=== PATIENT | female | born 1955 | race Caucasian/White ===

== ENCOUNTER → 2017-06-16 15:05 | Outpatient (CLI) | payer OTHER ==
[2016-09-27 12:58] VITALS: BMI 25.1
[~2017-06-16 15:05] MED LIST: BACTRIM 400-801 TAB PO; LEXAPRO10 MG PO; LIPITOR40 MG PO; LISINOPRIL-HCTZ1 TA2; LISINOPRIL-HCTZ1 TA2 PO; NAPROSYN500 MG PO; PERCOCET 10/3251 TA1 PO; TRAZODONE HCL50 MG PO; ZYRTEC10 M1 PO; ZYRTEC10 MG PO
== END | disposition home or self-care (01) ==
LOC: D.MRI 15:05
DX: M87.88 Other osteonecrosis, other site (principal)

== ENCOUNTER → 2017-06-18 14:07 | Outpatient (CLI) | payer OTHER ==
[2016-09-27 12:58] VITALS: BMI 25.1
== END | disposition home or self-care (01) ==
LOC: D.LABREF 14:07
DX: M16.11 Unilateral primary osteoarthritis, right hip (principal); Z11.8 Encounter for screening for other infectious and parasitic diseases

== ENCOUNTER 2017-06-25 10:00 | Inpatient (IN) | payer OTHER ==
[~2017-06-25] VITALS: Ht 172.7 cm; Wt 75.0 kg
[~2017-06-25 10:00] MED LIST changes: +LISINOPRIL5 MG PO
[2017-06-25 12:52] LABS: BASOPHILS 0 % (0-2); EOSINOPHILS 0 % (0-7); HEMATOCRIT 39.9 % (36.0-48.0); HEMOGLOBIN 13.5 g/dL (12-16); IMMATURE GRANULOCYTES 0.1 % (0-5); LYMPHOCYTES 28.2 % (15-50); MCH 31.6 pg (26.0-34.0); MCHC 33.8 g/dL (31.0-37.0); MCV 93.4 fL (80.0-100.0); MEAN PLATELET VOLUME 11.3 fL (7.4-10.4); MONOCYTES 6.6 % (2-11); NEUTROPHILS 65.1 % (40-80); PLATELET COUNT 164 10x3/uL (130-400); RBC 4.27 10x6/uL (4.00-5.40); RDW 13.1 % (11.5-14.5); WBC 6.9 10x3/uL (4.8-10.8)
[2017-06-25 13:06] LABS: APTT 26.4 SECONDS (22.8-39.4); CALC OSMOLALITY 283 mosm/kg (275-300); CALCIUM 8.6 mg/dL (8.5-10.1); CARBON DIOXIDE 32.1 mmol/L (21.0-32.0); CHLORIDE - SERUM 105 mmol/L (98-107); CREATININE - SERUM 0.8 mg/dL (0.6-1.3); GLUCOSE 94 mg/dL (74-106); INR 1.01 (0.85-1.17); POTASSIUM - SERUM 4.3 mmol/L (3.5-5.1); PROTIME 13.1 SECONDS (11.6-15.0); SODIUM 142 mmol/L (136-145); UREA NITROGEN 16 mg/dL (7-18); eGFR NON AFRICAN AMERICAN 77 mL/min (90-120)
[2017-06-25 13:19] LABS: APPEARANCE HAZY (CLEAR); BACTERIA FEW /hpf (NONE SEEN); BILIRUBIN NEGATIVE (NEGATIVE); COLOR YELLOW (YELLOW); EPITHELIAL CELLS RARE /hpf (0-5); GLUCOSE NEGATIVE (NEGATIVE); KETONE NEGATIVE (NEGATIVE); LEUKOCYTE ESTERASE TRACE (NEGATIVE); NITRITE NEGATIVE (NEGATIVE); PROTEIN NEGATIVE (NEGATIVE); RED CELLS - URINE 0-5 /hpf (0-5); UROBILINOGEN NORMAL (NORMAL); WHITE CELLS - URINE 0-5 /hpf (0-5)
[2017-07-01] VITALS (11 sets, daily range): BP systolic 100–158; BP diastolic 52–81; Ht 172.7 cm; Wt 75.0 kg
--- NOTE | 2017-07-01 11:25 | NUR ---
PATIENT RECEIVED TO FLOOR FROM PACU VIA BED. NO SIGNS OF DISTRESS NOTED. VITAL SIGNS STABLE. FAMILY PRESENT. DRESSING TO RIGHT HIP CLEAN, DRY AND INTACT. SCDS ON BILATERALLY. ORIENTED TO ROOM. SIDE RAILS UP X2. BED IN LOW POSITION. CALL LIGHT IN REACH.
--- NOTE | 2017-07-01 14:04 | NUR ---
ALERT IN BED WITH FAMILY PRESENT. C/O PAIN 07/27. PERCOCET PER PRN ORDER. DENIES FURTHER NEEDS. SIDE RAILS UP X2. BED IN LOW POSITION. CALL LIGHT IN REACH.
--- NOTE | 2017-07-01 14:32 | OP ---
PATIENT NAME: GALLO CEBALLOS MEDICAL RECORD: [id number] :57 LOCATION:D.[id number] ADMISSION DATE:07/01/17 SURGEON: YOSEF YAN DO DATE OF OPERATION: 07/01/2017 PROCEDURE PERFORMED: Right total hip arthroplasty. PREOPERATIVE DIAGNOSIS: Right femoral head avascular necrosis. POSTOPERATIVE DIAGNOSIS: Right femoral head avascular necrosis. INDICATIONS: Ms. Ceballos is a 62-year-old female who had previously had discovered AVN in her femoral head a couple of years ago. She underwent a core decompression approximately a little less than a year ago and has had excruciating hip pain since, it never improved and she got to the point where she was exhausted dealing with the pain and she requested a total hip arthroplasty to be performed due to the effects of the pain on her activities of daily living and trying conservative management as well as with a core decompression. She was consented in the office. The risks and benefits of the procedure were discussed with her and she consented to undergo right total hip arthroplasty. SURGEON: Yosef Yan DO. ASSISTED BY: CECILIO Mckeon. DESCRIPTION OF PROCEDURE: The patient was taken to the operative suite, laid in supine position and given general anesthetic and moved over to the table and the right leg was positioned. Left leg was placed in a well leg chau and well padded. A timeout was performed and everyone was in agreement with the correct site, side and surgery. She was given Ancef prior to the incision as well as TXA. The patient was then prepped and draped in sterile fashion and the procedure commenced with the incision. There is a careful coagulation made down to the fascia of the tensor fascia adriana and was incised was then elevated off the muscle belly anteriorly and the muscle belly was pushed posterior with an Stiven Romel retractor. The junction just under the rectus femoris muscle was then found and the fascia was incised over that with the plasma knife. The rectus was then released slightly off of the ASIS started off the pelvis to relax it and the fascia over the vessels. The ascending branch of the lateral femoral circumflex were encountered. They were tied off and coagulated using the Aquamantys and then divided using the plasma knife. Dissection was then made down to the hip capsule itself and retractors were placed on either side of it. The capsulotomy was performed and tagged. Some bleeding was found at that time and the Aquamantys was used to coagulate. After that was done, the retractors were then placed intracapsular around the neck and the neck cut was made. The corkscrew was then placed in the femoral head and then did not get a good bite due to the avascular necrosis of the femoral head and a Sandoval retractor was used to get the femoral head out. The acetabulum was then exposed. The anterior labrum was removed as well as the pulvinar and the reaming commenced and a first medialized and then in the correct position. This was done under fluoroscopy sized up to a 52 cup. The cup was then placed into the acetabulum and seen to be in good position and very solid. Attention was then drawn to the femur. The femur was externally rotated and extended and abducted, has to present the femur into the wound, released the pubofemoral ligament was done at that time to get more motion of the femur and a hanna OPERATIVE REPORT [id number] GALLO CEBALLOS cutter was used to cut out the canal of the femur. Canal finder was then placed in the canal and the broaching commenced with a 1 up to an 8. An 8 was placed and we trialed the neck and the head and found to be a standard neck, medium neck standard offset, a 28 head with a dual mobility cup and a 8 stem. These implants were then placed and after confirmation of the trial under fluoroscopy, the correct implants were placed and the stability was checked using external, internal rotation and there is no motion of the big ball seen, so only a small ball was moving while checking the motion. The wound was then irrigated thoroughly and rechecked again for bleeding. There was none. The capsule was closed. Layla was placed into the wound and the tensor fascia adriana, the fascia was closed using [id number]-[id number] sutures, #1 Vicryl. The skin was then closed using 2-0 Vicryl and 4-0 Monocryl and glue was placed over the incision site. Telfa and Tegaderm were placed over that after the glue and Dermabond had dried. The patient was awakened in stable condition taken to recovery. ESTIMATED BLOOD LOSS: 100 mL. TRANSINT:[id number] Voice Confirmation ID: [id number] DOCUMENT ID: [id number] YOSEF YAN DO at 1432 CC: [id number] DICTATION DATE: 07/01/17 1042 GETTER OPERATOR: 07/01/17 1215 ADM IN [place] [id number] [place] [id number]
--- NOTE | 2017-07-01 16:10 | NUR ---
ALERT IN BED. NO SIGNS OF DISTRESS NOTED. SCHEDULED MEDICATION ADMINISTERED. DENIES NEEDS. HAS BEEN UP TO RESTROOM WITH ASSIST X2 TIMES, BUT UNABLE TO VOID AT THIS TIME. SIDE RAILS UP X2. BED IN LOW POSITION. CALL LIGHT IN REACH.
--- NOTE | 2017-07-01 18:00 | NUR ---
IV TO RIGHT AC LEAKING. IV D/C WITH CATH TIP INTACT. NEW 22 GAUGE IV SITED TO RIGHT FOREARM X1 ATTEMPT. FLUSHES EASY WITH BRISK BLOOD RETURN PRESENT. SECURED WITH TAPE AND TEGADERM. IVF INFUSING WITHOUT DIFFICULTY.
[2017-07-02 04:00] VITALS: BP 123/63
[2017-07-02 05:30] LABS: BASOPHILS 0 % (0-2); EOSINOPHILS 0 % (0-7); HEMATOCRIT 32.4 % (36.0-48.0); HEMOGLOBIN 10.7 g/dL (12-16); IMMATURE GRANULOCYTES 0.2 % (0-5); LYMPHOCYTES 14.6 % (15-50); MCH 31.1 pg (26.0-34.0); MCV 94.2 fL (80.0-100.0); MEAN PLATELET VOLUME 11.4 fL (7.4-10.4); MONOCYTES 6.2 % (2-11); PLATELET COUNT 142 10x3/uL (130-400); RBC 3.44 10x6/uL (4.00-5.40); RDW 13.6 % (11.5-14.5); WBC 8.4 10x3/uL (4.8-10.8)
[2017-07-02 05:55] LABS: ANION GAP 9.2 mmol/L (8-16); BILIRUBIN - TOTAL 0.58 mg/dL (0.2-1.3); CALCIUM 7.8 mg/dL (8.5-10.1); CARBON DIOXIDE 28.7 mmol/L (21.0-32.0); POTASSIUM - SERUM 3.9 mmol/L (3.5-5.1)
--- NOTE | 2017-07-02 07:30 | NUR ---
SLEEPING AT THIS TIME WITH RESPIRATIONS EVEN AND NON LABORED. CALL LIGHT IN REACH AND BED ALARM ON. WILL CONTINUE WITH PLAN OF CARE.
--- NOTE | 2017-07-02 09:18 | NUR ---
SCHEDULED MEDICATIONS ADMINISTERED AT THIS TIME WELL PRN PERCOCET AT THIS TIME. AT BEDSIDE. PHYSICAL THERAPY WORKING WITH PT AT THIS TIME. CALL LIGHT IN REACH, WILL CONTINUE WITH PLAN OF CARE.
[2017-07-02 09:52] VITALS: BP 132/60
--- NOTE | 2017-07-02 11:35 | NUR ---
DENIES NEEDS AT THIS TIME. PAIN 02/24. INSTRUCTED PT THAT PAIN MEDICATION WOULD BE AVAILABLE AFTER 1:15PM AND TO CALL IF SHE FELT THAT SHE NEEDED. PT VERBALIZED UNDERSTANDING. CALL LIGHT IN REACH AND BED ALARM ON. WILL CONTINUE WITH PLAN OF CARE.
--- NOTE | 2017-07-02 11:37 | NUR ---
CM met with patient to assess discharge planning needs. Patient lives independently with her , Garret. She plans on discharging home where she has 6 steps to enter into her home, then it is one level. She does not have and medical equipment at home and will need a walker at [facility]. CM has sent the order for a 2 wheel walker to [facility] and it will be delivered to the hospital. Dr Driscoll will let CM know if he want HH or OP PT set up. CM will continue to follow and assist as needed. PCP: Sarah Lalachad) [facility] [facility] [address] [place] () [phone] or [phone]
[2017-07-02 13:07] VITALS: BP 129/60
[2017-07-02] MEDS ORDERED: ELIQUIS2.5 MG PO (14:02)
[2017-07-02] MEDS ORDERED: PERCOCET 10/3251 TA1 PO (14:03)
[2017-07-02] MEDS ORDERED: DURICEF500 MG PO (14:03)
--- NOTE | 2017-07-02 14:11 | NUR ---
lu from [employer] delivering the walker, scd machine, and bedside toilet
--- NOTE | 2017-07-02 15:40 | NUR ---
PRN PERCOCET ADMINISTERED AT THIS TIME. DISCHARGE INSTRUCTIONS REVIEWED WITH PT AND SPOUSE. DENIE QUESTIONS OR CONCERNS. WILL D/C HOME.
== END 2017-07-02 15:55 | disposition home or self-care (01) | DRG 470 ==
LOC: D.SDCHOLD 07-01 05:00 → D.MS 07-01 05:00 → D.SDCHOLD 07-01 07:30 → D.MS 07-01 10:51 → D.SDCHOLD 07-01 15:32 → D.MS 07-01 15:33
PROVIDERS: Emergency Medicine; ADMIT Orthopaedic Surgery
PROC: 0SR90JZ Replacement of Right Hip Joint with Synthetic Substitute, Open Approach (ICD-10-PCS; principal; 2017-07-01 07:30)
DX: M87.9 Osteonecrosis, unspecified (principal); D62 Acute posthemorrhagic anemia; F32.9 Major depressive disorder, single episode, unspecified; I10 Essential (primary) hypertension

== ENCOUNTER → 2018-10-06 06:53 | Outpatient (CLI) | payer OTHER ==
[2017-07-01 11:36] VITALS: BMI 25.1
[~2018-10-06 06:53] MED LIST changes: +DURICEF500 MG PO; +ELIQUIS2.5 MG PO
== END | disposition home or self-care (01) ==
LOC: D.MRI 06:53
DX: M17.0 Bilateral primary osteoarthritis of knee (principal)

== ENCOUNTER → 2018-11-13 09:50 | Outpatient (CLI) | payer OTHER ==
[2017-07-01 11:36] VITALS: BMI 25.1
== END | disposition home or self-care (01) ==
LOC: D.RAD 11-05 13:00
DX: M25.511 Pain in right shoulder (principal)

== ENCOUNTER → 2018-11-24 21:46 | Outpatient (CLI) | payer OTHER ==
[2017-07-01 11:36] VITALS: BMI 25.1
== END | disposition home or self-care (01) ==
LOC: D.MAMMO 15:45
DX: Z12.31 Encounter for screening mammogram for malignant neoplasm of breast (principal)

== ENCOUNTER → 2019-11-01 14:04 | Outpatient (CLI) | payer OTHER ==
[2017-07-01 11:36] VITALS: BMI 25.1
[~2019-11-01 14:04] MED LIST changes: +AMITRIPTYLINE H50 MG PO; +LISINOPRIL20 MG PO; -LISINOPRIL5 MG PO
== END | disposition home or self-care (01) ==
LOC: D.LABREF 14:04
PROVIDERS: ATTEND Orthopaedic Surgery
DX: M17.0 Bilateral primary osteoarthritis of knee (principal)

== ENCOUNTER 2019-11-03 12:00 | Inpatient (IN) | payer OTHER ==
[~2019-11-03] VITALS: Ht 172.7 cm; Wt 77.3 kg
[~2019-11-03 12:00] MED LIST changes: -AMITRIPTYLINE H50 MG PO
[2019-11-12] MEDS ORDERED: AMITRIPTYLINE H50 MG PO (14:22)
[2019-11-15 12:15] LABS: APPEARANCE CLEAR (CLEAR); BACTERIA FEW /hpf (NEGATIVE); BILIRUBIN NEGATIVE (NEGATIVE); COLOR YELLOW (YELLOW); EPITHELIAL CELLS RARE /hpf (0-5); GLUCOSE NEGATIVE (NEGATIVE); KETONE NEGATIVE (NEGATIVE); MUCUS <1+ /lpf (NONE SEEN); NITRITE NEGATIVE (NEGATIVE); PROTEIN NEGATIVE (NEGATIVE); RED CELLS - URINE NONE SEEN /hpf (0-5); UROBILINOGEN NORMAL (NORMAL)
[2019-11-19 07:26] LABS: BASOPHILS 0 % (0-2); EOSINOPHILS 0 % (0-7); HEMATOCRIT 40.1 % (36.0-48.0); HEMOGLOBIN 13.3 g/dL (12-16); IMMATURE GRANULOCYTES 0.2 % (0-5); LYMPHOCYTES 33.3 % (15-50); MCH 30.6 pg (26.0-34.0); MCHC 33.2 g/dL (31.0-37.0); MCV 92.4 fL (80.0-100.0); MEAN PLATELET VOLUME 10.6 fL (7.4-10.4); MONOCYTES 6.6 % (2-11); NEUTROPHILS 59.9 % (40-80); RBC 4.34 10x6/uL (4.00-5.40); WBC 5.5 10x3/uL (4.8-10.8)
[2019-11-19 07:27] LABS: PLATELET COUNT 239 10x3/uL (130-400)
[2019-11-19 07:35] LABS: CALC OSMOLALITY 286 mosm/kg (275-300); CALCIUM 8.9 mg/dL (8.5-10.1); CARBON DIOXIDE 27.2 mmol/L (21.0-32.0); CHLORIDE - SERUM 105 mmol/L (98-107); CREATININE - SERUM 0.8 mg/dL (0.6-1.3); GLUCOSE 96 mg/dL (74-106); POTASSIUM - SERUM 3.7 mmol/L (3.5-5.1); SODIUM 143 mmol/L (136-145); UREA NITROGEN 17 mg/dL (7-18); eGFR NON AFRICAN AMERICAN 77 mL/min (90-120)
[2019-11-19 07:37] LABS: APTT 25.4 SECONDS (22.8-39.4); INR 0.94 (0.85-1.17); PROTIME 12.1 SECONDS (11.6-15.0)
[2019-11-19] MEDS ORDERED: OXYBUTYNIN CHLOR5 MG PO (08:09)
[2019-11-19 08:11] VITALS: BP 181/73; BMI 25.9
--- NOTE | 2019-11-19 14:24 | NUR ---
EPIDURAL @8 ON ADMIT .REDUCED TO 6 @8631
--- NOTE | 2019-11-19 14:40 | NUR ---
EPIDURAL DC"D ROYAL APPLIED PRIOR TO TRANSPORT TO FLOOR @5335
[2019-11-19 14:54] VITALS: BP 112/56
[2019-11-19 15:33] VITALS: BP 112/56; Ht 172.7 cm; Wt 77.3 kg
[2019-11-19 17:50] VITALS: BP 118/68
--- NOTE | 2019-11-19 18:53 | NUR ---
REMAINS WITHIOUT NEEDS.STILL NO PAIN.CPM ORDERED.
[2019-11-19 20:00] VITALS: BP 137/68
[2019-11-20 01:03] LABS: APPEARANCE CLEAR (CLEAR); BACTERIA NONE SEEN /hpf (NEGATIVE); BILIRUBIN NEGATIVE (NEGATIVE); COLOR YELLOW (YELLOW); EPITHELIAL CELLS NSEEN /hpf (0-5); GLUCOSE NEGATIVE (NEGATIVE); KETONE NEGATIVE (NEGATIVE); NITRITE NEGATIVE (NEGATIVE); PROTEIN NEGATIVE (NEGATIVE); RED CELLS - URINE NONE SEEN /hpf (0-5); SPECIFIC GRAVITY 1.015 (1.005-1.020); UROBILINOGEN NORMAL (NORMAL); WHITE CELLS - URINE 0-5 /hpf (NEGATIVE)
[2019-11-20 04:00] VITALS: BP 140/66
--- NOTE | 2019-11-20 04:01 | NUR ---
PT RESTING IN BED. EYES CLOSED. NO SIGNS OF DISTRESS. BREATHING EVEN AND UNLABORED. IV SITE RT HAND DRESSING CLEAN DRY AND INTACT. NO SIGNS OF INFECTION OR INFULTRATION. LUNG SOUNDS CLEAR. BOWEL SOUNDS ACTIVE. LT AND RT KNEE DRESSING CLEAN DRY AND INTACT. WOUND VAC ON. NO LOWER LEGS SWELLING PRESENT. PLEXI PULSES ON. WILL CONTINUE PLAN OF CARE. CALL LIGHT IN REACH. BED RAILS X1.
--- NOTE | 2019-11-20 04:14 | NUR ---
I have reviewed this patient and I concur with the Shift Assessment completed by the Licensed Practical Nurse today this shift.
[2019-11-20 06:09] LABS: BASOPHILS 0 % (0-2); EOSINOPHILS 0 % (0-7); HEMATOCRIT 31.3 % (36.0-48.0); HEMOGLOBIN 10.1 g/dL (12-16); IMMATURE GRANULOCYTES 0.3 % (0-5); LYMPHOCYTES 13.9 % (15-50); MCH 30.4 pg (26.0-34.0); MCHC 32.3 g/dL (31.0-37.0); MCV 94.3 fL (80.0-100.0); MEAN PLATELET VOLUME 10.8 fL (7.4-10.4); MONOCYTES 8.5 % (2-11); NEUTROPHILS 77.3 % (40-80); PLATELET COUNT 215 10x3/uL (130-400); RBC 3.32 10x6/uL (4.00-5.40); RDW 13.3 % (11.5-14.5)
[2019-11-20 06:29] LABS: ANION GAP 12.9 mmol/L (8-16); CALCIUM 7.8 mg/dL (8.5-10.1); CARBON DIOXIDE 25.1 mmol/L (21.0-32.0)
--- NOTE | 2019-11-20 07:10 | NUR ---
PT RESTING IN BED. NO SIGNS OF DISTRESS. IV TO RIGHT WRIST PATENT NO REDNESS OR TENDERNESS. WOUND VAC TO BEATA KNEES DRESSING CLEAN AND INTACT. COMPLAINS OF PAIN. WILL ADDRESS. DENIES ANY FURTHER NEED AT THIS TIME. CALL LIGHT IN REACH. BED LOW POSITION. NO FAMILY AT BEDSIDE AT THSIT TIME.
--- NOTE | 2019-11-20 09:01 | NUR ---
PT LYING IN BED STATES PAIN IS AT A 15 ADMINISTERED PRN PAIN MEDICATION, PT JUST FINISHED BREAKFAST, EMPTIED ROYAL, NO OTHER NEEDS, ASSUME PT CARE
--- NOTE | 2019-11-20 09:30 | NUR ---
PT UP IN CHAIR AFTER WALKING WITH PT, STATES PAIN IS A LOT BETTER NOW AFTER MEDICATION. WILL CONTINUE WITH PLAN OF CARE AND PAIN CONTROL
--- NOTE | 2019-11-20 10:05 | OP ---
PATIENT NAME: GALLO CEBALLOS MEDICAL RECORD: [id number] :57 LOCATION:D.[id number] ADMISSION DATE:11/19/19 SURGEON: YOSEF YAN DO DATE OF OPERATION: 11/19/2019 PROCEDURE PERFORMED: Bilateral total knee arthroplasties. PREOPERATIVE DIAGNOSIS: Bilateral knee osteoarthritis. POSTOPERATIVE DIAGNOSIS: Bilateral knee osteoarthritis. INDICATIONS: Ms. Ceballos is a 64-year-old female who has had several injections in bilateral knees and has had worsening pain. She had x-rays and MRIs, which indicated osteoarthritis of bilateral knees. She wanted to do both on the same time, I told her that we could do that, but she would be at increased risk for complications and continued problems, all the other risks including infection, bleeding, damage to nerves or vessels, need for further surgery, blood clots, even , failure of implants, need for further surgery, fracture, and she signed the consent. SURGEON: Yosef Yan DO DESCRIPTION OF PROCEDURE: The patient got epidural by anesthesia in preoperative area and was taken to the operative suite, given 2 grams of Ancef and 80 mg gentamicin preoperatively. She was sedated and intubated. The bilateral lower extremities were then prepped and draped in sterile fashion. A timeout was performed and everyone was in agreeance of the correct side, site, patient and procedure. We then began with the left one first and covered the right one and sterile dressings. Once we exposed the knee, I marked out the incision and covered in Ioban. I then used 10 blade scalpel and cut down to the capsule and then the capsule with a fresh 10 blade was entered into the joint using medial parapatellar approach. Patella was then milled down. The fat pad was removed. The ACL was removed and the distal femur was entered into the shaft with a drill. The distal femur was then cut through the guide, and after this was done, the proximal tibia was exposed and was cut through the guide. The knee was then brought in extension. The menisci were removed using a lamina microfilm mounter and a Bovie and pituitary. Any bleeding was coagulated with the Aquamantys. The knee was then flexed up and the femur was measured to be 62.5. The 4-in-1 cutting block was then used to cut the femur. Once that was cut the trial was put in place and the tibial tray was floated in marked rotation. Patella was then drilled and the lug holes on the femur were drilled. The trial in the femur was removed and the tibia was exposed sized to a 71. It was drilled and punched and extra holes put in the tibia for cement mantle preparation. Cement was then mixed and the tibial implant impacted in place. Excess cement was removed. The femur was then impacted on and a 10 poly was put in between them and brought to extension. Patella was then put on and the povidone iodine solution with 10% povidone iodine 500 mL of saline was placed in the knee. Excess cement was removed and held while the cement dried. The patella then somehow came loose and I used a 28 and freshened up the cut and deepen the holes and mixing cement and put a 25 and held it in place while it dried and irrigated thoroughly the knee. We then trialed the 10 poly and it fit very well, had good medial and lateral stability in flexion, extension and a 10 E poly was locked into place with the locking mechanism. The knee was then irrigated again. The capsule was closed with #2 Ethibond in gabrmp-yt-lveag fashion, 2-0 Vicryl in the skin and interrupted fashion. ZipLine was placed on OPERATIVE REPORT [id number] LISAGALLO ORTIZ the knee. This was then covered with ABD and cast padding and then covered up. The right knee was then exposed. It had been previously prepped it was reprepped and then the incision was marked out covered with Ioban and the incision began down to the capsule. Medial parapatellar approach was made with a fresh 10 blade scalpel. The fat pad was partially removed. The patella milled down and ACL was removed. The distal femur was then entered with a drill and the distal femur was cut. Proximal tibia was cut and the excess menisci removed when the knee was brought to extension. A 10 extension block fit well. The knee was then flexed up and the femur sized to be 62.5. A 4-in-1 cutting block was then put on and cut and the trial was put into place and the tibia was floated in range. Rotation was then marked. The patella was then drilled and the lug holes on the femur were drilled. The femoral trial was then removed and the tibia was exposed sized to be 71, drilled and then punched, and cement was mixed. Extra holes were placed in the tibia for cement mantle. Cement was then put in the tibia and on the implant, impacted in place. Excess cement was removed. Femur was then impacted on and a 10 poly was put in between them, brought to extension and the patella was put on as well and fit very well at this time. Excess cement was removed and I squeezed held it in place. We then put the povidone iodine in this knee as well, and once it has been 3 minutes, irrigated out thoroughly as we did at the knee. We then sized the poly up to a 14 and 14 fit very well and we locked this into place. Good medial and lateral stability in flexion and extension. We then put the tobramycin and vancomycin powder in and then Layla powder in the knee on the right. This is not done on the left. The capsule was then closed with #2 Ethibond in iqxubq-rf-swmtp fashion. Skin with 2-0 Vicryl in inverted interrupted fashion. The plane on the knee and then the incisional VACs were then placed on each one of the knees and hooked up to suction. She was then awakened and taken to recovery in stable condition. Blood loss approximately 300 mL. COMPLICATIONS: None. TRANSINT:[id number] Voice Confirmation ID: [id number] DOCUMENT ID: [id number] YOSEF YAN DO at 1005 CC: [id number] DICTATION DATE: 11/19/19 1332 EMD TEACHER: 11/19/19 1729 ADM IN [facility] [address] [place] [address]
[2019-11-20 10:12] VITALS: BP 119/62
--- NOTE | 2019-11-20 10:36 | NUR ---
I have reviewed this patient and I concur with the Shift Assessment completed by the Licensed Practical Nurse today this shift.
--- NOTE | 2019-11-20 11:22 | NUR ---
AFTER GVING PT PRN PAIN MEDS PO PT STATED PAIN IS STILL AT A 10, ADMINISTERED PRN IV PAIN MEDS, PT SPOUSE AT BEDSIDE STATED WE NEEDED TO GET PAIN UNDER CONTROL, ADVISED HIM THAT IS ONE OF MY MAIN GOALS, PT WAS UP IN CHAIR AND WALKED BACK TO BED AND MOST LIKELY CAUSE OF CURRENT PAIN. APPLIED ICE TO BOTH KNEES. CONTINUE WITH PLAN OF CARE
[2019-11-20 13:40] VITALS: BP 115/57
[2019-11-20 16:45] VITALS: BP 109/59
--- NOTE | 2019-11-20 16:46 | NUR ---
I have reviewed this patient and I concur with the Shift Assessment completed by the Licensed Practical Nurse today this shift.
--- NOTE | 2019-11-20 17:20 | NUR ---
PT HR STILL IN 100'S AND O2 WAS DOWN TO 86 WENT BACK UP AFTER PLACING 2L OF O2 ON PT AND INSTRUCTING FOR DEEP BREATHES. PT STATES PAIN IS STILL AT AN 8. HAD ADMINISTERED PRN IV PAIN MEDICATION AT 1630 UNABLE TO GIVE ANYTHING ELSE AT THIS TIME, PT WAS SLEEPING PRETTY GOOD BEFORE VS TAKEN. WILL CONTINUE WITH PLAN OF CARE
--- NOTE | 2019-11-20 19:08 | NUR ---
PATIENT ALERT AND ORIENTED WHEN ENTERING THE ROOM. PATIENT SLEEPING WITH NASAL CANNULA ON. PATIENT HAS BILATERAL WOUND VACS TO EACH KNEE. PULSES PALPAPBLE IN PEDAL AREA. PATIENT WIGGLES TOES ON COMMAND. WARM TO TOUCH AND CAPILLARY REFILL LESS THAN 3 SECONDS. PATIENT WEARING PLEXI PULSES ORDERED. PATIENT CURRENTLY NOT ON CPM MACHINE. PROVIDED OXYCODONE 5 MG AND VISTARIL. PATIENT TOOK WITH NO ISSUES. APPLIED CPMS BILATERALLY WITH HELP OF SCHOOL BUSINESS MANAGER. PATIENT TOLERATING WELL AT THIS TIME. CALL LIGHT IN REACH. DENIES FURTHER NEEDS AT THIS TIME. BED LOCKED AND LOWERED WITH SIDE RAILS UP X 2. CPOC.
[2019-11-20 20:00] VITALS: BP 132/60
--- NOTE | 2019-11-20 22:17 | NUR ---
REMOVED CPMS WITH ASSISTANCE OF LEGAL JOB TITLES. PATIENT TOLERATED WELL.
--- NOTE | 2019-11-20 22:45 | NUR ---
APPLIED MEPILEX BORDERS PER ORDER. PLEXI PULSES ON BILATERALLY. ICE TO BILATERAL AFFECTED AREAS.
[2019-11-20 23:30] VITALS: BP 136/54
--- NOTE | 2019-11-21 00:04 | NUR ---
ASSISTED TO BEDSIDE COMMODE. PATIENT MOVEMENT IMPROVING.
--- NOTE | 2019-11-21 02:43 | NUR ---
I have reviewed this patient and I concur with the Shift Assessment completed by the Licensed Practical Nurse today this shift.
[2019-11-21 04:00] VITALS: BP 131/58
[2019-11-21 05:21] LABS: BASOPHILS 0 % (0-2); EOSINOPHILS 0 % (0-7); HEMATOCRIT 29.4 % (36.0-48.0); HEMOGLOBIN 9.5 g/dL (12-16); IMMATURE GRANULOCYTES 0.2 % (0-5); LYMPHOCYTES 11.6 % (15-50); MCH 30.4 pg (26.0-34.0); MCHC 32.3 g/dL (31.0-37.0); MCV 93.9 fL (80.0-100.0); MEAN PLATELET VOLUME 10.6 fL (7.4-10.4); MONOCYTES 10.9 % (2-11); NEUTROPHILS 77.3 % (40-80); RBC 3.13 10x6/uL (4.00-5.40); RDW 13.5 % (11.5-14.5); WBC 9.9 10x3/uL (4.8-10.8)
--- NOTE | 2019-11-21 05:30 | NUR ---
ROYAL CARE PROVIDED. CPM'S ON.
[2019-11-21 05:35] LABS: PLATELET COUNT 163 10x3/uL (130-400)
[2019-11-21 05:58] LABS: ANION GAP 12.6 mmol/L (8-16); CALCIUM 7.7 mg/dL (8.5-10.1); CARBON DIOXIDE 23.2 mmol/L (21.0-32.0); POTASSIUM - SERUM 3.8 mmol/L (3.5-5.1)
[2019-11-21 05:59] LABS: CREATININE - SERUM 1.8 mg/dL (0.6-1.3)
--- NOTE | 2019-11-21 07:37 | NUR ---
ALERT AND ORIENTED. LUNGS CLEAR BILATERALLY. HEART SOUNDS S1 AND S2 HEARD IN ALL [place]. BOWEL SOUNDS ACTIVE X 4. PATIENT CURRENTLY USING CPM MACHINES ON BILATERAL KNEES. REQUESTING PAIN MEDICATION WHEN DUE. AVAILABLE AT 0800. WOUNDS VACS TO BILATERAL KNEEDS C/D/I AND FUNCTIONING PROPERLY. IV TO LEFT WRIST PATENT WITHOUT REDNESS. EDUCATION PROVIDED THAT ROYAL TO BE REMOVED TODAY. VERBALIZED UNDERSTANDING. WILL REMOVE AFTER PATIENT TAKEN OFF CPM MACHINES. DENIES FURTHER NEEDS. BED LOW. CALL VÁSQUEZ AND PERSONAL ITEMS IN REACH. WILL CONTINUE TO MONITOR.
--- NOTE | 2019-11-21 08:09 | NUR ---
REQUESTED AND GIVEN PRN PAIN MEDICATION. ROYAL REMOVED PER ORDER. CPM MACHINES REMOVED PER REQUEST. PATIENT DENIES FURTHER NEEDS. WILL CONTINUE TO MONITOR.
--- NOTE | 2019-11-21 09:00 | NUR ---
BRAYAN MENDES PLACED ON PATIENT PER DR YAN'S REQUEST.
[2019-11-21 09:37] VITALS: BP 111/57
--- NOTE | 2019-11-21 10:00 | NUR ---
PATIENT VOIDING IN TOILET AFTER ROYAL REMOVAL.
--- NOTE | 2019-11-21 10:37 | NUR ---
IV PULLED OUT ON ACCIDENT BY PATIENT TO RIGHT HAND. ONLY IV FLUID OR MED ON JAN HALF NS. DR YAN PAGED TO SEE IF NEED NEW IV OR OK TO LEAVE OUT.
--- NOTE | 2019-11-21 11:02 | NUR ---
SPOKE WITH DR YAN WHO STATES NEED TO RESITE IV D/T PATIENT CREATININE LOW AND NEEDS IV FLUIDS. WILL ATTEMPT TO RESITE.
--- NOTE | 2019-11-21 11:30 | NUR ---
IV RESITED TO LEFT HAND.
--- NOTE | 2019-11-21 12:04 | NUR ---
EKG ORDERED PER CL RAY. RT NOTIFIED.
[2019-11-21 12:05] VITALS: BP 138/68
[2019-11-21 15:58] VITALS: BP 183/77
--- NOTE | 2019-11-21 17:09 | NUR ---
RESTING IN BED. DENIES NEEDS. WILL CONTINUE TO MONITOR.
--- NOTE | 2019-11-21 19:00 | NUR ---
BEDSIDE REPORT RECEIVED. PATIENT CURRENTLY ON CPM'S. REQUESTS PAIN MEDICINE WHEN AVAILABLE. PATIENT DENIES FURTHER NEEDS.
--- NOTE | 2019-11-21 19:37 | NUR ---
PATIENT CALLED THIS NURSE IN ROOM. STATES SHE HAS TROUBLE WITH UTI'S AND HAD ONE PRIOR TO ADMISSION THAT SHE WAS TAKING CIPRO FOR. SHE STATES SHE FEELS SOME BURNING AND ASKED FOR MEDS TO HELP WITH BURNING PAIN. CALL TO DR. YAN INFORMED OF FINDINGS. NEW ORDERS RECEIVED. SEE DOCUMENTATION.
[2019-11-21 20:31] LABS: APPEARANCE CLEAR (CLEAR); BILIRUBIN NEGATIVE (NEGATIVE); COLOR YELLOW (YELLOW); GLUCOSE NEGATIVE (NEGATIVE); KETONE NEGATIVE (NEGATIVE); NITRITE NEGATIVE (NEGATIVE); PROTEIN 1+ mg/dL (NEGATIVE); UROBILINOGEN NORMAL (NORMAL)
[2019-11-21 20:32] LABS: BACTERIA FEW /hpf (NEGATIVE); EPITHELIAL CELLS 0-5 /hpf (0-5)
[2019-11-21 20:51] VITALS: BP 139/64
--- NOTE | 2019-11-21 23:30 | NUR ---
ASSISTED PATIENT TO BEDSIDE COMMODE. PATIENT WOUND VAC ALARMS DURING MOVEMENT. REINFORCED SMALL LEAK AT EDGES WITH TEGADERM. SUCTIONING AT APPROPRIATE LIMITS AND NOT ALARMING. BILATERAL KNEE WOUND VACS SUCTIONING APPROPRIATELY AT THIS TIME.
[2019-11-22 00:21] VITALS: BP 147/80
--- NOTE | 2019-11-22 02:40 | NUR ---
ASSISTED TO BSC. DENIES FURTHER NEEDS AT THIS TIME.
[2019-11-22 05:08] VITALS: BP 141/67
--- NOTE | 2019-11-22 05:43 | NUR ---
I have reviewed this patient and I concur with the Shift Assessment completed by the Licensed Practical Nurse today this shift.
[2019-11-22 05:52] LABS: ANION GAP 11.4 mmol/L (8-16); CALCIUM 8.1 mg/dL (8.5-10.1); CARBON DIOXIDE 24.4 mmol/L (21.0-32.0); POTASSIUM - SERUM 3.8 mmol/L (3.5-5.1)
[2019-11-22 06:07] LABS: BASOPHILS 0.1 % (0-2); EOSINOPHILS 0 % (0-7); HEMATOCRIT 26.9 % (36.0-48.0); HEMOGLOBIN 8.9 g/dL (12-16); IMMATURE GRANULOCYTES 0.2 % (0-5); LYMPHOCYTES 12.8 % (15-50); MCH 30.6 pg (26.0-34.0); MCHC 33.1 g/dL (31.0-37.0); MCV 92.4 fL (80.0-100.0); MEAN PLATELET VOLUME 10.5 fL (7.4-10.4); MONOCYTES 12.9 % (2-11); PLATELET COUNT 175 10x3/uL (130-400); RBC 2.91 10x6/uL (4.00-5.40); RDW 13.6 % (11.5-14.5); WBC 8.5 10x3/uL (4.8-10.8)
--- NOTE | 2019-11-22 06:13 | NUR ---
TUBING CHANGED AND LABELED PER PROTOCAL. SWAB CAPS IN PLACE.
--- NOTE | 2019-11-22 08:00 | NUR ---
PATIENT IN BED WITH IV INTACT. NO COMPLAINTS OR SIGNS OF DISTRESS. IV INTACT. PROVENA WOUND VAC X 2 ON AND WORKING. CPM'S ON. CALL LIGHT WITHIN REACH. WILL CONTINUE TO MONITOR.
[2019-11-22] MEDS ORDERED: ELIQUIS2.5 MG PO (08:15)
[2019-11-22] MEDS ORDERED: CIPRO500 MG PO ×2 (08:16→08:21)
[2019-11-22] MEDS ORDERED: PHENAZOPYRIDIN100 MG PO (08:16)
[2019-11-22] MEDS ORDERED: VISTARIL50 MG PO (08:17)
[2019-11-22] MEDS ORDERED: OXYCODONE HCL10 MG PO (08:17)
[2019-11-22 08:23] VITALS: BP 147/65
--- NOTE | 2019-11-22 09:43 | NUR ---
BOTH KNEES WITH PREVENA ARTHRO DRESSINGS. NO COMPLAINTS OF DISCOMFORT FROM PATIENT. DRESSINGS INTACT. NO DRAINAGE NOTED.
--- NOTE | 2019-11-22 11:33 | MORECARE ---
CASE MANAGEMENT DISCHARGE SUMMARY PATIENT: GALLO GONZALEZ UNIT: [id number] ADM DATE: 11/19/19 AGE: 64 : 59 SEX: F ROOM/BED: D.2218 AUTHOR: ANEUDY LUNA PHYSICIAN: REFERRING PHYSICIAN: PETER YAN DO DATE OF SERVICE: 11/22/19 Discharge Plan Patient Name: GALLO GONZALEZ [facility] [facility] 1955 Planned Disposition: Home with Home Health Anticipated Discharge Date: Discharge Date: Expected LOS: Initial Reviewer: [email or web address] Initial Review Date: 11/19/2019 Generated: 11/22/19 12:33 pm DCPIA - Discharge Planning Initial Assessment Updated by [email or web address]: Radha Thompson on 11/22/19 11:30 am * Is the patient Alert and Oriented? Yes * How many steps to enter\exit or inside your home? * PCP DOUGLAS MENDOZA * Pharmacy [facility] [address] * Preadmission Environment Home with Family * ADLs Independent * Equipment Bedside Commode Shower Chair Walker * Other Equipment PREVENA CPM ICE MACHINE * List name and contact numbers for known caregivers / representatives who currently or will assist patient after discharge: CHRIST () [phone] * Verbal permission to speak to the caregivers and representatives has been obtained from the patient. N/A * Community resources currently utilized None * Additional services required to return to the preadmission environment? Yes * Can the patient safely return to the preadmission environment? Yes * Has this patient been hospitalized within the prior 30 days at any hospital? No Patient Name: GALLO GONZALEZ Page [id number] at 1133 All edits/amendments must be made on the electronic document DICTATION DATE: 11/22/19 1133 HOSPITAL SALES REPRESENTATIVE: VICTORINO 11/22/19 1133 RPT#: [id number] DC DATE: STATUS: ADM IN [facility] [address] [place] [address] END OF REPORT
--- NOTE | 2019-11-22 11:40 | MORECARE ---
CASE MANAGEMENT DISCHARGE SUMMARY PATIENT: GALLO GONZALEZ UNIT: [id number] ADM DATE: 11/19/19 AGE: 64 : 59 SEX: F ROOM/BED: D.7410 AUTHOR: CHERYL,DOC PHYSICIAN: REFERRING PHYSICIAN: PETER YAN DO DATE OF SERVICE: 11/22/19 Discharge Plan Patient Name: GALLO GONZALEZ Facility: [facility]:[place] : 1955 Planned Disposition: Home with Home Health Anticipated Discharge Date: Discharge Date: Expected LOS: Initial Reviewer: [email or web address] Initial Review Date: 11/19/2019 Generated: 11/22/19 12:40 pm Comments DCP- Discharge Planning Updated by [email or web address]: Radha Thompson on 11/22/19 10:[address] Patient Name: GALLO GONZALEZ Admission Status: Elective Accout number: [id number] Admission Date: 11-19-2019 : 1955 Admission Diagnosis: Attending: PETER YAN Current LOS: 3 Anticipated DC Date: Planned Disposition: Home with Home Health Primary Insurance: [facility] Discharge Planning Comments: CM met with patient to complete initial dc planning assessment. CM educated patient on the CM role and verbal consent given by patient to complete assessment. Patient lives at home with spouse where she is independent at home. At discharge patient plans to return home and feels this is a safe discharge. CM discussed availability of home health, rehab services, and medical equipment. 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 She has a CPM machine, walker, BSC, pravena, shower chair & ice machine. She would like to use [facility] with PT. I will call and send referral to [facility]. AMANDA signed and placed in chart. Patient denied known discharge needs at this time. CM will continue to follow and will assist as needed with dc plans/needs. Air Transport Professionals: Radha Thompson DCPIA - Discharge Planning Initial Assessment Updated by [email or web address]: Radha Thompson on 11/22/19 11:30 am * Is the patient Alert and Oriented? Yes * How many steps to enter\exit or inside your home? * PCP DOUGLAS MENDOZA * Pharmacy [facility] [address] * Preadmission Environment Home with Family * ADLs Independent * Equipment Bedside Commode Shower Chair Walker * Other Equipment PREVENA CPM ICE MACHINE * List name and contact numbers for known caregivers / representatives who currently or will assist patient after discharge: CHRIST () [phone] * Verbal permission to speak to the caregivers and representatives has been obtained from the patient. N/A * Community resources currently utilized None * Additional services required to return to the preadmission environment? Yes * Can the patient safely return to the preadmission environment? Yes * Has this patient been hospitalized within the prior 30 days at any hospital? No Coverage Notice Reviewer: [id number] Linda Thompson Notice Issued Date-Time: 11/22/2019 11:15 Notice Type: Patient Choice Letter Notice Delivered To: Patient Relationship to Patient: Hotel Engineer Name: Delivery Method: HAND - Hand Delivered Judi Days: Prior Verbal Notification: Recipient Understood Notice: Yes Recipient Signature: Yes Med Rec Note Co-signed by Attending: Coverage Notice Comment: [facility] Last DP export: 11/22/19 10:33 am Patient Name: GALLO GONZALEZ Page 70415 at 1140 All edits/amendments must be made on the electronic document DICTATION DATE: 11/22/19 1140 METAL MOULDER'S ASSISTANT: VICTORINO 11/22/19 1140 RPT#: [id number] DC DATE: STATUS: ADM IN [facility] [address] [place] [address] END OF REPORT
--- NOTE | 2019-11-22 11:49 | MORECARE ---
CASE MANAGEMENT DISCHARGE SUMMARY PATIENT: GALLO GONZALEZ UNIT: [id number] ADM DATE: 11/19/19 AGE: 64 : 59 SEX: F ROOM/BED: D.8329 AUTHOR: CHERYL,DOC PHYSICIAN: REFERRING PHYSICIAN: PETER YAN DO DATE OF SERVICE: 11/22/19 Discharge Plan Patient Name: GALLO GONZALEZ Facility: [facility]:[place] : 1955 Planned Disposition: Home with Home Health Anticipated Discharge Date: Discharge Date: Expected LOS: Initial Reviewer: [email or web address] Initial Review Date: 11/19/2019 Generated: 11/22/19 12:48 pm Comments DCP- Discharge Planning Updated by [email or web address]: Radha Thompson on 11/22/19 10:[address] Patient Name: GALLO GONZALEZ Admission Status: Elective Accout number: [id number] Admission Date: 11-19-2019 : 1955 Admission Diagnosis: Attending: PETER YAN Current LOS: 3 Anticipated DC Date: Planned Disposition: Home with Home Health Primary Insurance: [facility] Discharge Planning Comments: CM met with patient to complete initial dc planning assessment. CM educated patient on the CM role and verbal consent given by patient to complete assessment. Patient lives at home with spouse where she is independent at home. At discharge patient plans to return home and feels this is a safe discharge. CM discussed availability of home health, rehab services, and medical equipment. 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 She has a CPM machine, walker, BSC, pravena, shower chair & ice machine. She would like to use [facility] with PT. I will call and send referral to [facility]. AMANDA signed and placed in chart. Patient denied known discharge needs at this time. CM will continue to follow and will assist as needed with dc plans/needs. School Bus Aide: Radha Thompson DCPIA - Discharge Planning Initial Assessment Updated by [email or web address]: Radha Thompson on 11/22/19 11:30 am * Is the patient Alert and Oriented? Yes * How many steps to enter\exit or inside your home? * PCP DOUGLAS MENDOZA * Pharmacy [facility] [address] * Preadmission Environment Home with Family * ADLs Independent * Equipment Bedside Commode Shower Chair Walker * Other Equipment PREVENA CPM ICE MACHINE * List name and contact numbers for known caregivers / representatives who currently or will assist patient after discharge: CHRIST () [phone] * Verbal permission to speak to the caregivers and representatives has been obtained from the patient. N/A * Community resources currently utilized None * Additional services required to return to the preadmission environment? Yes * Can the patient safely return to the preadmission environment? Yes * Has this patient been hospitalized within the prior 30 days at any hospital? No External Providers External Provider: [facility] Next Contact Date: Service Request Date: Service Type: Resolution: Reviewer: Comments: Coverage Notice Reviewer: [email or web address] Linda Thompson Notice Issued Date-Time: 11/22/2019 11:15 Notice Type: Patient Choice Letter Notice Delivered To: Patient Relationship to Patient: Data Analysis Intern Name: Delivery Method: HAND - Hand Delivered Juid Days: Prior Verbal Notification: Recipient Understood Notice: Yes Recipient Signature: Yes Med Rec Note Co-signed by Attending: Coverage Notice Comment: [facility] Last DP export: 11/22/19 10:40 am Patient Name: GALLO GONZALEZ Page 44940 at 1149 All edits/amendments must be made on the electronic document DICTATION DATE: 11/22/19 1148 TIGHTENING MACHINE OPERATOR: VICTORINO 11/22/19 1148 RPT#: [id number] DC DATE: STATUS: ADM IN [facility] [address] [place] [address] END OF REPORT
--- NOTE | 2019-11-22 13:23 | NUR ---
PATIENT RECIEVED DC INSTRUCTIONS. VERBALIZED UNDERSTANDING. NO QUESTIONS AT THIS TIME. IV REMOVED WITH CATH TIP INTACT. DRESSINGS AND WOUND VAC CHANGED BY DR. YAN. PRESCRIPTIONS AND EXTRA DRESSING FOR RIGHT KNEE GIVEN TO PATIENT. PATIENT ESCORTED OUT OF HOSPITAL VIA WITH PERSONAL BELONGINGS TO PRIVATE VEHICLE.
--- NOTE | 2019-11-24 18:06 | MORECARE ---
CASE MANAGEMENT DISCHARGE SUMMARY PATIENT: GALLO GONZALEZ UNIT: [id number] ADM DATE: 11/19/19 AGE: 64 : 59 SEX: F ROOM/BED: D.5977 AUTHOR: CHERYL,DOC PHYSICIAN: REFERRING PHYSICIAN: PETER YAN DO DATE OF SERVICE: 11/24/19 Discharge Plan Patient Name: GALLO GONZALEZ Facility: [facility]:[place] : 1955 Planned Disposition: Home with Home Health Anticipated Discharge Date: Discharge Date: 11/22/2019 Expected LOS: Initial Reviewer: [email or web address] Initial Review Date: 11/19/2019 Generated: 11/24/19 7:05 pm Comments DCP- Discharge Planning Updated by [email or web address]: Radha Thompson on 11/22/19 10:[address] Patient Name: GALLO GONZALEZ Admission Status: Elective Accout number: [id number] Admission Date: 11-19-2019 : 1955 Admission Diagnosis: Attending: PETER YAN Current LOS: 3 Anticipated DC Date: Planned Disposition: Home with Home Health Primary Insurance: [facility] Discharge Planning Comments: CM met with patient to complete initial dc planning assessment. CM educated patient on the CM role and verbal consent given by patient to complete assessment. Patient lives at home with spouse where she is independent at home. At discharge patient plans to return home and feels this is a safe discharge. CM discussed availability of home health, rehab services, and medical equipment. 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 She has a CPM machine, walker, BSC, pravena, shower chair & ice machine. She would like to use [facility] with PT. I will call and send referral to [facility]. AMANDA signed and placed in chart. Patient denied known discharge needs at this time. CM will continue to follow and will assist as needed with dc plans/needs. Him Specialists: Radha Thompson DCPIA - Discharge Planning Initial Assessment Updated by [email or web address]: Radha Thompson on 11/22/19 11:30 am * Is the patient Alert and Oriented? Yes * How many steps to enter\exit or inside your home? * PCP DOUGLAS MENDOZA * Pharmacy [facility] [address] * Preadmission Environment Home with Family * ADLs Independent * Equipment Bedside Commode Shower Chair Walker * Other Equipment PREVENA CPM ICE MACHINE * List name and contact numbers for known caregivers / representatives who currently or will assist patient after discharge: CHRIST () [phone] * Verbal permission to speak to the caregivers and representatives has been obtained from the patient. N/A * Community resources currently utilized None * Additional services required to return to the preadmission environment? Yes * Can the patient safely return to the preadmission environment? Yes * Has this patient been hospitalized within the prior 30 days at any hospital? No Coverage Notice Reviewer: [email or web address] Linda Thompson Notice Issued Date-Time: 11/22/2019 11:15 Notice Type: Patient Choice Letter Notice Delivered To: Patient Relationship to Patient: Facilities Technician Name: Delivery Method: HAND - Hand Delivered Judi Days: Prior Verbal Notification: Recipient Understood Notice: Yes Recipient Signature: Yes Med Rec Note Co-signed by Attending: Coverage Notice Comment: [facility] Last DP export: 11/22/19 10:49 am Patient Name: GALLO GONZALEZ Page 67063 at 1806 All edits/amendments must be made on the electronic document DICTATION DATE: 11/24/191804 SCREEDMAN/LABORER: VICTORINO 11/24/191804 RPT#: [id number] DC DATE:11/22/19 STATUS: DIS [facility] [address] [place] [address] END OF REPORT
== END 2019-11-22 13:37 | disposition home health service (06) | DRG 462 ==
LOC: D.SDCHOLD 11-15 10:00 → D.MS 11-19 14:15
PROVIDERS: Emergency Medicine; ADMIT Orthopaedic Surgery; ATTEND Orthopaedic Surgery
PROC: 0SRC0J9 Replacement of Right Knee Joint with Synthetic Substitute, Cemented, Open Approach (ICD-10-PCS; 2019-11-19)
PROC: 0SRD0J9 Replacement of Left Knee Joint with Synthetic Substitute, Cemented, Open Approach (ICD-10-PCS; principal; 2019-11-19 09:30)
DX: M17.0 Bilateral primary osteoarthritis of knee (principal); D62 Acute posthemorrhagic anemia; I10 Essential (primary) hypertension; F32.9 Major depressive disorder, single episode, unspecified

== ENCOUNTER → 2019-12-13 09:36 | Outpatient (CLI) | payer OTHER ==
[2019-11-19 15:33] VITALS: BMI 25.9
[~2019-12-13 09:36] MED LIST changes: +AMITRIPTYLINE H50 MG PO; +CIPRO500 MG PO; +OXYBUTYNIN CHLOR5 MG PO; +OXYCODONE HCL10 MG PO; +PHENAZOPYRIDIN100 MG PO; +VISTARIL50 MG PO
[2019-12-13 09:49] LABS: BASOPHILS 0.2 % (0-2); EOSINOPHILS 0 % (0-7); HEMATOCRIT 35.8 % (36.0-48.0); HEMOGLOBIN 11.5 g/dL (12-16); IMMATURE GRANULOCYTES 0.2 % (0-5); LYMPHOCYTES 28.5 % (15-50); MCH 29.5 pg (26.0-34.0); MCHC 32.1 g/dL (31.0-37.0); MCV 91.8 fL (80.0-100.0); MEAN PLATELET VOLUME 10.6 fL (7.4-10.4); MONOCYTES 7.4 % (2-11); NEUTROPHILS 63.7 % (40-80); RDW 13.8 % (11.5-14.5)
[2019-12-13 10:01] LABS: ANION GAP 13.4 mmol/L (8-16); CALCIUM 9.1 mg/dL (8.5-10.1); CARBON DIOXIDE 29.7 mmol/L (21.0-32.0); CREATININE - SERUM 1.1 mg/dL (0.6-1.3); POTASSIUM - SERUM 4.1 mmol/L (3.5-5.1)
[2019-12-13 10:08] LABS: ALBUMIN 3.8 g/dL (3.4-5.0); BILIRUBIN - TOTAL 0.42 mg/dL (0.2-1.3); PROTEIN - SERUM 7.2 g/dL (6.4-8.2)
[2019-12-13 10:41] LABS: PLATELET COUNT 331 10x3/uL (130-400)
== END | disposition home or self-care (01) ==
LOC: D.LABREF 09:36
PROVIDERS: ATTEND Orthopaedic Surgery
DX: R42 Dizziness and giddiness (principal)

== ENCOUNTER → 2020-06-21 13:41 | Outpatient (CLI) | payer OTHER ==
[2019-11-19 15:33] VITALS: BMI 25.9
== END | disposition home or self-care (01) ==
LOC: D.MRI 13:41
PROVIDERS: ATTEND Orthopaedic Surgery
DX: M75.122 Complete rotator cuff tear or rupture of left shoulder, not specified as traumatic (principal)

== ENCOUNTER 2020-06-27 05:41 | Day surgery (SDC) | payer OTHER ==
[~2020-06-27] VITALS: Ht 172.7 cm; Wt 77.1 kg
[~2020-06-27 05:41] MED LIST changes: +LISINOPRIL10 MG PO; -LISINOPRIL20 MG PO
[2020-06-27 06:18] LABS: HEMATOCRIT 40.7 % (36.0-48.0); HEMOGLOBIN 13.3 g/dL (12-16); MCH 31.3 pg (26.0-34.0); MCHC 32.7 g/dL (31.0-37.0); MCV 95.8 fL (80.0-100.0); MEAN PLATELET VOLUME 10.2 fL (7.4-10.4); RBC 4.25 10x6/uL (4.00-5.40); RDW 13.9 % (11.5-14.5); WBC 6.7 10x3/uL (4.8-10.8)
[2020-06-27 06:47] VITALS: BP 150/84; Ht 172.7 cm; Wt 77.1 kg
--- NOTE | 2020-06-28 03:26 | OP ---
PATIENT NAME: GALLO CEBALLOS MEDICAL RECORD: [id number] :[birth year] [facility] AD[facility] DATE: SURGEON: YOSEF YAN DO DATE OF OPERATION: 06/27/2020 PROCEDURE PERFORMED: Left shoulder arthroscopy with subacromial decompression, distal clavicle excision, labral debridement, biceps tenodesis and rotator cuff repair with Regeneten. PREOPERATIVE DIAGNOSES: Partial rotator cuff tear, AC joint arthritis, subacromial impingement, Dania complex and SLAP tear. POSTOPERATIVE DIAGNOSES: Partial rotator cuff tear, AC joint arthritis, subacromial impingement [place] complex and SLAP tear. INDICATIONS: Ms. Ceballos is a 65-year-old female who has had left shoulder pain for quite some time. We got an MRI showing the above findings. She was tired of dealing with the pain as we tried injections and all manner of nonoperative treatment and wants something done surgically. I informed her of the risks including infection, bleeding, damage to nerves and vessels, need for further surgery, adhesive capsulitis, continued pain, loss of strength in that arm, need for further surgery, failure of implants, even , and she signed the consent. SURGEON: Yosef Yan DO DESCRIPTION OF PROCEDURE: The patient received a block by anesthesia in preoperative area. She was taken to the operative suite, given 900 mg clindamycin, laid in the right lateral decubitus position with the left shoulder up and axillary roll placed. The patient was sedated and LMA was placed. The left shoulder was then prepped and draped in sterile fashion. A timeout was performed and everyone was in agreement with correct site, side, patient, and procedure. Began by inflating the shoulder joint with 60 cc normal saline with an 18-gauge spinal needle through the posterior portal and then removed the head and established the portal with an 11-blade scalpel. Trocar was then entered into the joint. The camera was then entered in. Anterior portal was established with an 18-gaude spinal needle and 11-blade scalpel. I immediately saw the Dania complex and a SLAP tear and the partial rotator cuff tear on the articular side. I then inspected the joint. There was no cartilage loss and the inferior gutter was good. No loose bodies. I then brought the burner in and did a biceps tenotomy and labral debridement and then a debridement of the rotator cuff tendon as well. I then went to the subacromial space, established lateral portal with an 18-gauge spinal needle and 11-blade scalpel. Did subacromial decompression, distal clavicle excision, opening of the AC joint approximately 7 mm and taken distal lateral acromion off the big spur. I then cleaned up the bursa on the rotator cuff and then marked the tear. There was a partial tear also on the bursal side and marked it and then went back in the joint to assure that it was in the correct spot on the articular side and it was. I then extended the lateral incision and made careful dissection down to the rotator cuff tendon where the tear was and put Regeneten patch on and stapled it and placed medial and lateral. I then went to the anterior humerus, made an incision and fished out the long head of the biceps tendon and then made a unicortical hole with a drill and put in a unicortical ToggleLoc cinch stitch and then cinched down the long head of the biceps tendon to the humerus and then cut the loop from the suture and then sutured back through the long head of the OPERATIVE REPORT [id number] MANIFOLD,GALLO ANGEL biceps tendon and tied it down and cut the excess tendon and suture, then irrigated all the sites and then closed the biceps tenodesis site as well as the rotator cuff tendon site with 2-0 Vicryl in inverted interrupted fashion, 4-0 Monocryl in the skin. Anterior and posterior portals with 4-0 Monocryl in inverted interrupted fashion. Dermabond glue was then placed on all the incision sites and dressed with Telfa and Tegaderm. She was then awakened, put in a sling and taken to recovery in stable condition. BLOOD LOSS: Minimal. COMPLICATIONS: None. TRANSINT:[id number] Voice Confirmation ID: [id number] DOCUMENT ID: [id number] YOSEF YAN DO at 0326 CC: [id number] DICTATION DATE: 06/27/20 1540 UNIVERSAL BANKER: 06/28/20 0052 [facility] 06/27/20 [facility] [address] [place] [address]
== END 2020-06-27 12:10 | disposition home or self-care (01) ==
LOC: D.OPS 05:41 → D.PAN 08:00 → D.OPS 08:00 → D.PAN 10:30 → D.OPS 12:10 → D.PAN 15:00 → D.OPS 15:00
PROVIDERS: Anesthesiology; ATTEND Orthopaedic Surgery
DX: M75.102 Unspecified rotator cuff tear or rupture of left shoulder, not specified as traumatic (principal); M19.012 Primary osteoarthritis, left shoulder; M25.812 Other specified joint disorders, left shoulder; S43.432A Superior glenoid labrum lesion of left shoulder, initial encounter; X58.XXXA Exposure to other specified factors, initial encounter; I10 Essential (primary) hypertension